=== PATIENT | male | born 1935 | race Caucasian/White ===

== ENCOUNTER 2018-10-23 21:26 | Inpatient (IN) ==
--- NOTE | 2018-10-23 22:21 | Diag Imaging Result Doc PS360 ---
EXAM: CHEST-2 VIEWS HISTORY: CONGESTION, FEVER TECHNIQUE: Chest two views COMPARISON: 05/23/2011 FINDINGS: The left hemidiaphragm is elevated. There is a small left pleural effusion. No cardiomegaly. There are infiltrates in the right upper lobe. No right pleural effusion. There are multiple old right rib fractures. IMPRESSION: Right upper lobe infiltrates. Electronically signed by Jose G Bustamante 10/23/2018 10:19 PM
--- NOTE | 2018-10-23 22:42 | PROVIDER DOCUMENTATION ---
HPI-Respiratory General - General Chief Complaint: Cold Symptoms Stated Complaint: WEAKNESS Time Seen by Provider: 10/23/18 22:35 Source: patient, family Allergies/Adverse Reactions: Patient Allergies Allergy/AdvReac Type Severity Reaction Status Date / Time No Known Allergies Allergy Verified 10/24/18 03:56 Home Medications: Home Medication List Medication Instructions Recorded Confirmed Last Taken Type Donepezil [Aricept] 10 mg PO QHS 10/24/18 10/24/18 Unknown History Doxazosin Mesylate 0.5 mg PO QHS 10/24/18 10/24/18 Unknown History - History of Present Illness-Resp Nature of Presenting Problem: 83 YOM WAS BROUGHT IN BY FAMILY AFTER 3 DAYS OF LUNG CONGESTION. THE FAMILY REPORTS THEY GAVE HIM SOME LEFT OVER PO ABX NAD HE DID NOT IMPROVE TODAY HE WOULD NOT EAT, WAS LESS AWAKE THAN USUAL AND HAD INCREASED O2 REQUIREMENTS. Quality of Pain: reports: none Severity in ED: reports: mild Onset/Duration: reports: 3 days ago Timing: reports: still present Cough Quality/Degree: reports: dry cough Episode Frequency: no prior episodes Current Respiratory Medication Therapy: Initiated other (OXYGEN) Modifying Factors: improves with: nothing Associated Symptoms: reports: denies symptoms Similar Symptoms Previously?: No Recently seen or treated by another doctor?: No Review of Systems - Adult - REVIEW OF SYSTEMS - ADULT Constitutional: reports: fever. denies: no symptoms reported, see HPI, chills, fatique, night sweats, weight gain, weight loss, other Eyes: reports: no symptoms reported. denies: see HPI, discharge, dry eyes, decreased vision, blurred vision, double vision, eye pain, redness, other Ears, Nose, Mouth & Throat: reports: sinus problem. denies: no symptoms reported, see HPI, ear discharge, ear pain, hearing loss, tinnitus, epistaxis, nose pain, loose teeth, mouth/dental pain, mouth swelling, hoarseness, throat pain, throat swelling, other Cardiovascular: reports: no symptoms reported. denies: see HPI, chest pain, edema, heart murmur, irregular heart rate, orthopnea, palpitations, poor circulation, PND, syncope, other Respiratory: reports: cough, shortness of breath. denies: no symptoms reported, see HPI, chronic cough, dyspnea on exertion, excessive sputum production, hemoptysis, pleurisy, wheezing, other Gastrointestinal: reports: no symptoms reported. denies: see HPI, abdominal pain, hematemesis, constipation, diarrhea, difficulty swallowing, frequent heartburn, nausea, poor appetite, rectal bleeding, vomiting, other Genitourinary: reports: no symptoms reported. denies: see HPI, dysuria, discharge, frequency, flank pain, frequent UTI's, hematuria, hesitency, incontinence, urinary retention, urgency, other Musculoskeletal: reports: no symptoms reported. denies: see HPI, bone pain, back pain, frequent leg cramps, joint pain, joint swelling, muscle aches, muscle weakness, neck pain, other Integumentary: reports: no symptoms reported. denies: see HPI, hives, hair loss, itching, mole changes, nail changes, rash, skin sores/ulcer, skin thickening, other Neurological: reports: no symptoms reported. denies: see HPI, ataxia, dizziness/vertigo, headache/migraines, loss of balance, numbness, paresthesia, seizure, slurred speech, syncope, tremors, other Psychiatric: reports: no symptoms reported. denies: see HPI, anxiety, anti-depressant use, alcohol/drug dependence, depression, emotional problems, insomnia, panic attacks, suicidal thoughts, other Endocrine: reports: no symptoms reported. denies: see HPI, change in skin pigment, excessive sweating, goiter, cold intolerance, heat intolerance, increased hunger, increased thirst, polyuria, other Hematologic/Lymphatic: reports: no symptoms reported. denies: see HPI, blood clots, easy bruising, low blood count, lymphedema, prolonged bleeding, swollen lymph nodes, transfusions, other Allergic/Immunologic: reports: no symptoms reported. denies: see HPI, allergic reactions, allergic rhinitis, asthma, eczema, food allergy, frequent infections, hay fever, hives, positive PPD, urticaria, other Past History - Adult - PAST MEDICAL HISTORY-ADULT Review of Records: reports: Nursing Assessment Review, Social history reviewed & non-contributory. Physical Exam-General - PHYSICAL EXAM-ADULT Initial Vital Signs Reviewed: Yes - CONSTITUTIONAL General Appearance: no apparent distress, thin, slow to respond - EYES Eyes: PERRL/EOMI - HEAD, EARS, NOSE, MOUTH & THROAT HENMT: normocephalic/atraumatic, moist mucous membranes, normal ENT inspection - NECK Neck: non-tender, full range of motion - RESPIRATORY Respiratory: no pleuratic chest pain, no respiratory distress, no accessory muscle use, crackles, wheezing. negative: lungs clear - CARDIOVASCULAR Cardiovascular: normal peripheral pulses, no edema, no gallop, no JVD, no murmur - GASTROINTESTINAL (ABDOMEN) Abdominal Exam: normal bowel sounds, non tender, soft - LYMPHATIC Lymphatic: no adenopathy - MUSCULOSKELETAL Back Exam: normal inspection, no CVA tenderness, no vertebral tenderness Extremity: normal range of motion, non-tender, normal gait - SKIN Integumentary: normal color, normal turgor - NEUROLOGIC Neurologic: grossly normal - PSYCHIATRIC Psych/Mental Status: normal mood/affect, oriented x 3 Progress - PLAN OF CARE/RESULTS Progress/Plan/Lab Results: Orders Category Date Time Status Admit - [facility] Routine AdmDCTranf 10/24/18 00:02 Active cxr [CHEST-2 VIEWS] [RAD] Stat Exams 10/23/18 21:45 Completed BLOOD CULTURE [BLDCUL] Stat Lab 10/23/18 23:17 Results CBC WITH ELECTRONIC DIFF [HEME] Stat Lab 10/23/18 23:17 Completed COMPREHENSIVE METABOLIC PANEL [CHEM] Stat Lab 10/23/18 23:17 Completed Flu [INFLUENZA SCREEN PL] Stat Lab 10/24/18 00:09 Completed LACTATE, PLASMA [CHEM] Stat Lab 10/23/18 23:17 Completed PROTIME WITH INR [COAG] Stat Lab 10/23/18 23:17 Completed PTT [COAG] Stat Lab 10/23/18 23:17 Completed 0.9% Sodium Chloride Inj [Ns] 1,000 ml Med 10/24/18 00:05 Discontinued IV 75 mls/hr 0.9% Sodium Chloride Inj [Ns] 1,000 ml Med 10/24/18 00:01 Discontinued IV 999 mls/hr Albuterol 2.5MG/Ipratrop 0.5MG [Duoneb (A & A)] Med 10/24/18 07:30 Active 3 ml INH [id number] Levofloxacin 500 mg/D5w [Levaquin 500 mg/D5w] Med 10/23/18 22:49 Discontinued 500 mg in 100 ml IV NOW Levofloxacin 500 mg/D5w [Levaquin 500 mg/D5w] Med 10/24/18 21:00 Discontinued 500 mg in 100 ml IV ONCE Aerosol Treatments Routine Oth 10/24/18 00:05 Completed Aerosol Treatments Stat Oth 10/24/18 00:05 Completed Oxygen Device Stat Oth 10/23/18 22:37 Completed EKG [EKG] Stat Ther 10/23/18 22:42 Ordered Transfer/Admit Order [TRANSFER] Routine Transfer 10/24/18 00:05 Completed Result Diagrams: 10/26/18 06:45 10/26/18 06:45 - XRAY 1 XRAY Study: Chest Impression: Abnormal (FINDINGS: The left hemidiaphragm is elevated. There is a small left pleural effusion. No cardiomegaly. There are infiltrates in the right upper lobe. No right pleural effusion. There are multiple old right rib fractures. IMPRESSION: Right upper lobe infiltrates.) Departure - Departure Date of Disposition Decision: 10/23/18 Time of Disposition Decision: 23:30 DIAGNOSIS: Dementia, Pneumonia Disposition: ADMITTED INPATIENT 09 Certified Medical Emergency: Emergent Condition: Stable - Critical Care Note This patient required my direct & personal management of CC.: No Attestation - Physician/ MARY BETH Attestation Patient care was provided by Advanced Practice Provider:: Yes Advanced Practice Provider:: Ana Maria Medel Advanced Practice Provider documentation review:: The Mid-level provider documentation, treatment plan and medical decision making was reviewed by the physician who agrees with all treatment and medical decision making by the P. The physician spent face to face time with patient:: No Advanced Practice Provider documentation review:: Supervising physician onsite and consulted in the evaluation and care of this patient. The physician did not have a face to face encounter with the patient.
[2018-10-23] MEDS ORDERED: LEVAQUIN 500 MG/D5W 500 MG/100 ML IVPB IV ONE (22:49)
[2018-10-23 23:40] LABS: BASO# 0.03 X1000 (0.0-0.2); BASO% 0.2 % (0.0-0.8); EOS# 0.02 X1000 (0.0-0.7); EOS% 0.1 % (0.0-10.0); HEMATOCRIT 45.2 % (42.0-52.0); HEMOGLOBIN 14.3 g/dL (14.0-18.0); IMM GRAN# 0.04 X1000 (0.0-0.04); IMM GRAN% 0.3 % (0.0-0.5); LYMPH# 1.22 X1000 (1.2-3.4); LYMPH% 8.6 % (20.5-51.1); MCH 30.4 PG (27-31); MCHC 31.6 g/dL (33-37); MCV 96.2 FL (81-99); MONO# 2.36 X1000 (0.11-0.59); MONO% 16.7 % (1.7-9.3); MPV 9.7 FL (7.4-10.4); NEUT# 10.46 X1000 (1.4-6.5); NEUT% 74.1 % (42.2-75.2); PLT 270 X1000 (130-400); RDW 13.9 % (11.5-14.5); WBC 14.13 X1000 (4.8-10.8)
[2018-10-23 23:50] LABS: INR 1.17; PROTIME 15.5 Seconds (11.0-16.0)
[2018-10-23 23:56] LABS: ALBUMIN 4.3 g/dL (3.5-5.0); CALCIUM 9.4 mg/dL (8.8-10.2); CREATININE 1.4 mg/dL (0.7-1.2); POTASSIUM 4.7 mmol/L (3.5-5.1); TOTAL BILIRUBIN 0.9 mg/dL (0.20-1.00)
[2018-10-24] MEDS ORDERED: NS 1,000 ML IV ONE ×2 (00:01→00:05)
[2018-10-24 00:37] LABS: INFLUENZA A NEGATIVE (NEGATIVE); INFLUENZA B NEGATIVE (NEGATIVE)
[2018-10-24] MEDS: DUONEB (A & A) INH SCH ×6 (08:17→23:40)
--- NOTE | 2018-10-24 17:33 | HISTORY AND PHYSICAL ---
PRIMARY CARE PHYSICIAN: Dr. Samia Hyatt. CHIEF COMPLAINT: Increased congestion over the past 3 days that had worsened and a decreased appetite. HISTORY OF PRESENTING ILLNESS: This is an 83-year-old male who presents to [facility] ER with family who states that he had congestion in his lungs for the past 3 days. The family gave him some leftover p.o. antibiotics but he did not improve, his appetite was decreased, seemed less awake than usual and had increased O2 requirements. When he arrived to the emergency room he was saturating 96% on room air. He did have a temperature of 99.9 degrees that went up a few hours later to 100.9 but this morning is now back down to 98.7. His white blood cell count was 14.13, his creatinine was 1.4, sodium 146. Plasma lactate was 2.8. Chest x-ray showed right upper lobe infiltrates so he is being admitted for further evaluation and treatment. PAST MEDICAL HISTORY: Dementia. PAST SURGICAL HISTORY: Of a carpal tunnel and hernia repair. FAMILY HISTORY: Reviewed and noncontributory. SOCIAL HISTORY: Currently lives with family. Denies any tobacco, alcohol or illicit drug use. ALLERGIES: He has no known drug allergies. HOME MEDICATIONS: He takes Aricept 10 mg p.o. at bedtime, doxazosin 0.5 mg p.o. at bedtime. LABORATORY DATA: Showed a white blood cell count of 14.13, hemoglobin 14.3, hematocrit 45.2, platelets 270,000, PT and INR of 15.5 and 1.17. Sodium 146, potassium 4.7, chloride 102, CO2 29, BUN of 24, creatinine 1.4, glucose 142. Plasma lactate on arrival was 2.8, 4 hours later went down to 1.6 and this a.m. was 1.1. Influenza A and B were both negative. Chest x-ray showed a right upper lobe infiltrates. REVIEW OF SYSTEMS: Unable to obtain from patient due to lethargy but family at bedside states that he has had increased congestion, some shortness of breath and decreased appetite. PHYSICAL EXAMINATION: On arrival he had a temperature of 99.9 degrees, pulse 106, respirations 18, blood pressure 114/62, saturating 96% on room air. Temperature did go up a couple hours after arrival to 100.9 but currently is back down to 98.7. He is saturating 97% on 2 L via nasal cannula. GENERAL: This is an 83-year-old male who is lying in the bed and answers questions appropriately. HEENT: Normocephalic, atraumatic. Normal ENT inspection. Oropharynx and nares are clear. Pupils are equal, round, reactive to light, accommodation. Extraocular movements are intact. NECK: Normal inspection. Normal range of motion. LUNGS: With wheezing throughout entire posterior lung chambers. Equal lung expansion. Chest wall movement noted. O2 via nasal cannula currently in use. HEART: Regular rate and rhythm. No murmurs, rubs, or gallops. ABDOMEN: Soft, nontender, nondistended. Bowel sounds are present x4 quadrants. MUSCULOSKELETAL: Unable to assess at this time due to his lethargy but family states he moves all extremities well. NEUROLOGICAL: The cranial nerves 2-12 appear grossly intact. ASSESSMENT: 1. Sepsis. 2. A right upper lobe pneumonia. 3. Leukocytosis. 4. Acute kidney injury. PLAN: He was admitted to the medical unit. Placed on a healthy heart diet. Placed on Levaquin 500 mg IV daily, normal saline at 75 mL an hour, DuoNeb q.4 hours. Will recheck a CBC, BMP in the a.m. Continue home medications as previously identified. Further orders after being seen by attending. Dictated by DELANEY Enriquez for Karthik Dodge MD cc: DO Karthik Lundberg MD
[2018-10-24] MEDS ORDERED: LEVAQUIN 500 MG/D5W 500 MG/100 ML IVPB IV ONE (21:00)
[2018-10-24] MEDS: TYLENOL PO PRN (21:59)
[2018-10-24] MEDS: ARICEPT PO SCH (21:59)
[2018-10-24] MEDS: CARDURA PO SCH (21:59)
[2018-10-24] MEDS: LEVAQUIN 500 MG/D5W 500 MG/100 ML IVPB IV SCH (22:09)
--- NOTE | 2018-10-25 05:31 | PROGRESS NOTE ---
CHIEF COMPLAINT: Shortness of breath. Briefly, this is an 83-year-old male with dementia who presents with chest congestion, fever, a white count of 14,000, and evidence of pneumonia. On physical exam he seems somewhat sedated. We will continue antibiotics and breathing treatments. No wheezing at this point. DVT prophylaxis and follow. This is a [id number] encounter note with DELANEY Enriquez. cc: Karthik Dodge MD
[2018-10-25] MEDS: LOVENOX SUBQ SCH (05:51)
[2018-10-25] MEDS: TYLENOL PO PRN ×2 (05:58→19:58)
[2018-10-25 07:47] LABS: BASO# 0.02 X1000 (0.0-0.2); BASO% 0.3 % (0.0-0.8); EOS# 0.03 X1000 (0.0-0.7); EOS% 0.4 % (0.0-10.0); HEMATOCRIT 37.7 % (42.0-52.0); HEMOGLOBIN 11.9 g/dL (14.0-18.0); IMM GRAN# 0.01 X1000 (0.0-0.04); IMM GRAN% 0.1 % (0.0-0.5); LYMPH% 8.1 % (20.5-51.1); MCH 30.4 PG (27-31); MCHC 31.6 g/dL (33-37); MCV 96.2 FL (81-99); MONO# 1.16 X1000 (0.11-0.59); MONO% 15.7 % (1.7-9.3); MPV 9.4 FL (7.4-10.4); NEUT# 5.58 X1000 (1.4-6.5); NEUT% 75.4 % (42.2-75.2); PLT 228 X1000 (130-400); RBC 3.92 XMIL (4.7-6.1); RDW 13.5 % (11.5-14.5)
[2018-10-25 07:49] LABS: AGAP 12; BUN 20 mg/dL (8-22); CALCIUM 8.3 mg/dL (8.8-10.2); CHLORIDE 105 mmol/L (98-107); COSMO 293; CREATININE 1.1 mg/dL (0.7-1.2); ESTIMATED GFR > 60; GLUCOSE 158 mg/dL (70-104); POTASSIUM 4.1 mmol/L (3.5-5.1); SODIUM 144 mmol/L (136-145); TCO2 26 mmol/L (25-35)
[2018-10-25] MEDS: DUONEB (A & A) INH SCH ×4 (08:14→20:30)
[2018-10-25] MEDS: LEVAQUIN 500 MG/D5W 500 MG/100 ML IVPB IV SCH (09:45)
--- NOTE | 2018-10-25 15:56 | PROGRESS NOTE ---
DATE: 10/25/2018 SUBJECTIVE: He is more awake and alert today. Still a little bit confused. OBJECTIVE: Vital Signs: Blood pressure is 105/66, heart rate of 104, respiratory rate of 20, temperature 99.3 degrees. He had a T-max of a 102.8 degrees. Cardiovascular: Regular rate and rhythm. Pulmonary: Bilateral breath sounds. Diminished at the bases. GI: Soft, nontender, nondistended. Bowel sounds are positive. LABORATORY DATA: White count is 7. Hemoglobin and hematocrit 11 and 37, platelets 228,000. Basic was normal. Flu was negative. Repeat lactate was negative. PROBLEM LIST: 1. Pneumonia which I think was right upper lobe and certainly possible it is aspiration type pneumonia. Right now he is just on Levaquin. We will continue Levaquin, pulmonary toilet, and follow. If persistently febrile, we may have to pursue CT imaging, and we will continue with pulmonary toilet and follow closely. 2. Dementia. Appears to be well controlled. DISPOSITION: Anticipate discharge when afebrile. I think he is not significantly active at baseline, but we will see how he looks. cc: Karthik Dodge MD
[2018-10-25 17:28] LABS: INFLUENZA A NEGATIVE (NEGATIVE); INFLUENZA B NEGATIVE (NEGATIVE)
[2018-10-25] MEDS: CARDURA PO SCH (19:58)
[2018-10-25] MEDS: ARICEPT PO SCH (19:58)
[2018-10-26] MEDS: ARICEPT PO SCH ×2 (01:44→21:15)
[2018-10-26] MEDS: CARDURA PO SCH ×2 (01:44→21:15)
[2018-10-26] MEDS: DUONEB (A & A) INH SCH ×6 (02:42→22:37)
[2018-10-26] MEDS: LOVENOX SUBQ SCH (05:17)
[2018-10-26 07:18] LABS: BASO# 0.01 X1000 (0.0-0.2); BASO% 0.2 % (0.0-0.8); EOS# 0.09 X1000 (0.0-0.7); EOS% 1.5 % (0.0-10.0); HEMATOCRIT 35.4 % (42.0-52.0); HEMOGLOBIN 11.5 g/dL (14.0-18.0); IMM GRAN# 0.01 X1000 (0.0-0.04); IMM GRAN% 0.2 % (0.0-0.5); LYMPH# 0.49 X1000 (1.2-3.4); LYMPH% 8.1 % (20.5-51.1); MCH 30.4 PG (27-31); MCHC 32.5 g/dL (33-37); MCV 93.7 FL (81-99); MONO# 0.89 X1000 (0.11-0.59); MONO% 14.8 % (1.7-9.3); MPV 9.1 FL (7.4-10.4); NEUT# 4.54 X1000 (1.4-6.5); NEUT% 75.2 % (42.2-75.2); PLT 207 X1000 (130-400); RBC 3.78 XMIL (4.7-6.1); RDW 13.1 % (11.5-14.5); WBC 6.03 X1000 (4.8-10.8)
[2018-10-26 07:42] LABS: AGAP 8; BUN 13 mg/dL (8-22); CHLORIDE 104 mmol/L (98-107); COSMO 279; ESTIMATED GFR > 60; GLUCOSE 115 mg/dL (70-104); POTASSIUM 3.4 mmol/L (3.5-5.1); SODIUM 139 mmol/L (136-145); TCO2 28 mmol/L (25-35)
--- NOTE | 2018-10-26 07:55 | Diag Imaging Result Doc PS360 ---
EXAM: CHEST-PORTABLE HISTORY: pna TECHNIQUE: Portable chest single view COMPARISON: 10/23/2018 FINDINGS: There are now infiltrates throughout both lungs. Poor inspiratory effort. No cardiomegaly. The left hemidiaphragm is elevated. Small left pleural effusion versus pleural thickening. IMPRESSION: Interval worsening. Electronically signed by Jose G Bustamante 10/26/2018 7:53 AM
[2018-10-26] MEDS: LEVAQUIN 500 MG/D5W 500 MG/100 ML IVPB IV SCH (08:21)
--- NOTE | 2018-10-26 10:57 | PROGRESS NOTE ---
DATE: 10/26/2018 SUBJECTIVE: Family notes that he seems to be doing a little bit better. He is still having some cough and shortness of breath, still confused and disoriented at times. PHYSICAL EXAMINATION: Vital Signs: Temperature 97, pulse 95, respiratory rate 18, blood pressure 104/54. General: Patient is awake, currently in no distress. He does respond to verbal stimuli, although is unable to answer questions appropriately due to his dementia. HEENT: Normocephalic. Neck: Supple. Cardiovascular: Regular rate. Chest: Clear. Abdomen: Soft. Extremities: Moves all extremities. ASSESSMENT: 1. Pneumonia. His recent chest x-ray was worse. Given his dementia and his propensity to not take medications as prescribed, we will keep him in the hospital today. We will attempt to telephone exchange operator to p.o. antibiotics. We will add clindamycin as he certainly could be aspirating. If he is unable to keep this down or unwilling to keep it down, then we will switch over to IV antibiotics. 2. Dementia. cc: Musa Santos MD
[2018-10-26] MEDS: CLEOCIN PO SCH ×2 (12:31→16:44)
[2018-10-27] MEDS: LOVENOX SUBQ SCH (05:17)
[2018-10-27] MEDS: DUONEB (A & A) INH SCH ×4 (07:34→19:00)
[2018-10-27] MEDS: CLEOCIN PO SCH ×3 (08:58→16:20)
[2018-10-27] MEDS: LEVAQUIN 500 MG/D5W 500 MG/100 ML IVPB IV SCH (08:58)
[2018-10-27 14:19] VITALS: BP 110/79
--- NOTE | 2018-10-28 00:31 | DISCHARGE SUMMARY ---
ADMISSION DATE: 10/24/2018 DISCHARGE DATE: 10/27/2018 DISCHARGE DIAGNOSES: 1. Pneumonia right upper lobe. 2. Dementia. CONSULTATIONS: None. PROCEDURES: None. BRIEF HOSPITAL COURSE: The patient is an 83-year-old male who presented to the hospital with increased cough, congestion and increased work of breathing. He was subsequently diagnosed with pneumonia and was placed on antibiotics. He thankfully had an uneventful hospital course, he continued to improve. On discharge he is awake and alert. He is confused but this is his baseline. He has had no further changes. He is taking antibiotics orally and therefore will be discharged home. DISPOSITION: The patient will be discharged home on azithromycin and Omnicef for the next 4 days. He will follow up with his primary care if symptoms worsen. Discussed with the family that if as he has done in the past he begins to refuse his antibiotics they will need to bring him back to the ER and he would need to stay in the hospital for IV antibiotics, but certainly expect that his confusion and agitation may improve when he is back in his regular environment. TIME SPENT: Greater than 30 minutes was spent in total care. cc: Musa Santos MD
[2018-10-28] MEDS ORDERED: LEVAQUIN PO SCH (09:00)
== END 2018-10-27 19:38 | disposition home or self-care (01) | DRG 871 ==
LOC: P.ED 21:26 → SUATTDRO 10-24 01:11 → P.MEDSURG 10-24 01:11
PROVIDERS: ATTEND Family Medicine
CPT/HCPCS: 71010; 71020; 71045; 71046; 80048; 80053; 83605; 85025; 85610; 85730; 87040; 87275; 87276; 87804; 93005; 94640; 94761; 96365; 99285; A9270; J1650; J1956; J7030

== ENCOUNTER 2019-08-01 17:14 | Inpatient (IN) ==
[2019-08-01] MEDS ORDERED: ROCEPHIN 1 GM in NS 50 ML IV ONE ×2 (18:05→19:25)
[2019-08-01] MEDS ORDERED: NS 1,000 ML IV ONE ×2 (18:05)
--- NOTE | 2019-08-01 18:38 | PROVIDER DOCUMENTATION ---
This chart was entered by Ondina Sanchez Scribe, acting as scribe for Messi Mojica MD. HPI-General Adult - General Source: patient - History of Present Illness -Gen Adult Nature of Presenting Problems: Pt is a 83 yom who presents to the ED via daughter. Pt daughter reports dementia in the pt onset 10 years. Pt daugther states that the pt seemed normal last nig ht, but slept in this morning and became lethargic. States that she tried to wake the pt but he would not respond which is unusual for him. Pt daughter states that the pt felt hot but is unsure of fever. Pt daughter reports poor fluid intake in the patient. Denies any N/V/D. Reports COPD. Onset/Duration: reports: this morning Timing: reports: still present Context/Activities at Onset: reports: none Modifying Factors: improves with: nothing Associated Symptoms: reports: fatigue, fever/chills Similar Symptoms Previously?: No Recently seen or treated by another doctor?: No <Messi Mojica - Last Filed: 08/01/19 18:37> - History of Present Illness -Gen Adult Nature of Presenting Problems: Patient is a 83 year old white male with history of COPD and severe dementia who arrives by POV with altered mentation,poor intake, and possible fever since yesterday. <Manuel Rondon - Last Filed: 08/01/19 21:56> - General Chief Complaint: Altered Mental Status Stated Complaint: FEVER LATHARGIC Time Seen by Provider: 08/01/19 17:16 Allergies/Adverse Reactions: Patient Allergies Allergy/AdvReac Type Severity Reaction Status Date / Time No Known Allergies Allergy Verified 10/24/18 03:56 Home Medications: Home Medication List Medication Instructions Recorded Confirmed Last Taken Type Donepezil [Aricept] 10 mg PO QHS 10/24/18 10/24/18 Unknown History Doxazosin Mesylate 0.5 mg PO QHS 10/24/18 10/24/18 Unknown History Clindamycin [Cleocin] 300 mg PO TID #30 cap 10/27/18 Unknown Rx Levofloxacin [Levaquin] 500 mg PO DAILY #4 tab 10/27/18 Unknown Rx Review of Systems - Adult - REVIEW OF SYSTEMS - ADULT ROS:: ROS per family Constitutional: reports: see HPI, fever (Pt daughter states that the pt felt extremely hot, but is unsure of fever.), fatique Eyes: reports: no symptoms reported Ears, Nose, Mouth & Throat: reports: no symptoms reported Cardiovascular: reports: no symptoms reported Respiratory: reports: no symptoms reported Gastrointestinal: reports: see HPI, other (poor fluid intake). denies: diarrhea, nausea, vomiting Genitourinary: reports: no symptoms reported Musculoskeletal: reports: no symptoms reported Integumentary: reports: no symptoms reported Neurological: reports: see HPI, other ( hx of dementia for 10 years) Psychiatric: reports: no symptoms reported Endocrine: reports: no symptoms reported Hematologic/Lymphatic: reports: no symptoms reported Allergic/Immunologic: reports: no symptoms reported All Other Systems: Reviewed and Negative <Messi Mojica - Last Filed: 08/01/19 18:37> - REVIEW OF SYSTEMS - ADULT Respiratory: reports: cough <Manuel Rondon - Last Filed: 08/01/19 21:56> Past History - Adult - PAST MEDICAL HISTORY-ADULT Review of Records: reports: Social history reviewed & non-contributory. Major Childhood Illnesses: reports: denies history Cardiovascular: reports: denies history Respiratory: reports: denies history Gastrointestinal: reports: denies history Obstetrical/Gynecological: reports: denies history Genitourinary: reports: denies history Musculoskeletal: reports: denies history Neurological: reports: dementia Endocrine/Immune: reports: denies history Other Conditions: reports: denies history - SOCIAL HISTORY Smoking: quit greater than 1 year Substance Use: denies Living Situation: family <Messi Mojica - Last Filed: 08/01/19 18:37> Physical Exam-General - PHYSICAL EXAM-ADULT Initial Vital Signs Reviewed: No - CONSTITUTIONAL General Appearance: alert, no apparent distress - EYES Eyes: PERRL/EOMI, pink conjunctivae - HEAD, EARS, NOSE, MOUTH & THROAT HENMT: normocephalic/atraumatic, moist mucous membranes - NECK Neck: non-tender, full range of motion, supple, normal inspection - RESPIRATORY Respiratory: chest non-tender, lungs clear, normal breath sounds, no respiratory distress, no accessory muscle use - CARDIOVASCULAR Cardiovascular: normal peripheral pulses, regular rate, rhythm, no edema, no gallop, no JVD, no murmur - GASTROINTESTINAL (ABDOMEN) Abdominal Exam: normal bowel sounds, soft, tenderness (lower abd tenderness) - MUSCULOSKELETAL Extremity: normal range of motion, non-tender, normal inspection, no pedal edema , no calf tenderness - SKIN Integumentary: normal color, normal turgor, warm/dry - NEUROLOGIC Neurologic: other (dementia) - PSYCHIATRIC Psych/Mental Status: normal mood/affect <Messi Mojica - Last Filed: 08/01/19 18:37> Progress - PLAN OF CARE/RESULTS Progress/Plan/Lab Results: Vital Signs - 8 hr 08/01/19 17:31 Temperature 97.8 F Pulse Rate 122 H Respiratory Rate 17 Blood Pressure 101/56 O2 Sat by Pulse Oximetry 89 L Orders Category Date Time Status Cardiac Monitoring NOW Care 08/01/19 17:40 Active IV Insertion NOW Care 08/01/19 17:40 Active NEWS Score >or=5:Order NEWS Bundle S.O. NOW Care 08/01/19 17:40 Active Notify Provider of NEWS Score NOW Care 08/01/19 17:40 Active CHEST-1 VIEW [RAD] Stat Exams 08/01/19 17:40 Ordered BLOOD CULTURE [BLDCUL] Stat Lab 08/01/19 17:40 Uncollected CBC WITH DIFF [HEME] Stat Lab 08/01/19 17:40 Uncollected CK PROFILE [SP CHEM] Stat Lab 08/01/19 17:40 Uncollected COMPREHENSIVE METABOLIC PANEL [CHEM] Stat Lab 08/01/19 17:40 Uncollected LACTATE, PLASMA [CHEM] Q3H Lab 08/01/19 17:45 Uncollected LACTATE, PLASMA [CHEM] Q3H Lab 08/01/19 20:45 Uncollected LACTATE, PLASMA [CHEM] Q3H Lab 08/01/19 23:45 Uncollected PROTIME WITH INR [COAG] Stat Lab 08/01/19 17:40 Uncollected PTT [COAG] Stat Lab 08/01/19 17:40 Uncollected TROPONIN T HIGH SENSITIVITY Stat Lab 08/01/19 17:40 Uncollected URINALYSIS W/POSS RFLX CULT [URINALYSIS] Stat Lab 08/01/19 17:40 Uncollected O2 Per Protocol Stat Oth 08/01/19 17:40 Active - CHANGE OF SHIFT REPORT (ED Provider) 1 Report Given and Care Transferred to:: DR Jammie RONDON Time of Transfer: 18:38 <Mojica,Messi W. - Last Filed: 08/01/19 18:37> - PLAN OF CARE/RESULTS Progress/Plan/Lab Results: Vital Signs - 8 hr 08/01/19 17:31 Temperature 97.8 F Pulse Rate 122 H Respiratory Rate 17 Blood Pressure 101/56 O2 Sat by Pulse Oximetry 89 L Orders Category Date Time Status Cardiac Monitoring NOW Care 08/01/19 17:40 Active FSBS/Accucheck Result NOW Care 08/01/19 18:40 Ordered IV Insertion NOW Care 08/01/19 17:40 Completed NEWS Score >or=5:Order NEWS Bundle S.O. NOW Care 08/01/19 17:40 Active Notify Provider of NEWS Score NOW Care 08/01/19 17:40 Active CHEST-1 VIEW [RAD] Stat Exams 08/01/19 17:[address] ABDOMEN/PELVIS W/O CONTRAST [CT] Stat Exams 08/01/19 18:[address] HEAD W/O CONTRAST [CT] Stat Exams 08/01/19 18:33 Ordered ABG [RESP] Routine Lab 08/01/19 18:34 Ordered BLOOD CULTURE [BLDCUL] Stat Lab 08/01/19 18:37 Ordered CBC WITH DIFF [HEME] Stat Lab 08/01/19 18:37 Ordered CK PROFILE [SP CHEM] Stat Lab 08/01/19 18:37 Ordered COMPREHENSIVE METABOLIC PANEL [CHEM] Stat Lab 08/01/19 18:37 Ordered LACTATE, PLASMA [CHEM] Q3H Lab 08/01/19 18:37 Ordered LACTATE, PLASMA [CHEM] Q3H Lab 08/01/19 20:45 Uncollected LACTATE, PLASMA [CHEM] Q3H Lab 08/01/19 23:45 Uncollected PROTIME WITH INR [COAG] Stat Lab 08/01/19 18:37 Ordered PTT [COAG] Stat Lab 08/01/19 18:37 Ordered TROPONIN T HIGH SENSITIVITY Stat Lab 08/01/19 17:40 Uncollected URINALYSIS W/POSS RFLX CULT [URINALYSIS] Stat Lab 08/01/19 17:40 Uncollected 0.9% Sodium Chloride Inj [Ns] 1,000 ml Med 08/01/19 18:05 Active IV 999 mls/hr 0.9% Sodium Chloride Inj [Ns] 1,000 ml Med 08/01/19 18:05 Active IV 999 mls/hr CefTRIAXONE [Rocephin] 1 gm Med 08/01/19 18:05 Discontinued 0.9% Sodium Chloride Inj [Ns] 50 ml IV NOW O2 Per Protocol Stat Oth 08/01/19 17:40 Active Result Diagrams: 08/01/19 18:30 08/01/19 18:30 - EKG 1 Time of EKG reading by physician:: 19:48 EKG Read and Signed by:: Manuel Rondon Rate: 109 Rhythm: sinus tach [place]: normal ST Wave: non-specific ST changes Comments: no STEMI - CONSULTS/PCP/HOSPITALIST Notification #1 *Consult/PCP/Hospitalist*: Dr. Bean, hospitalist Time Discussed: 19:50 Consult Disposition: Admit <Manuel Rondon - Last Filed: 08/01/19 21:56> Departure <Messi Mojica - Last Filed: 08/01/19 18:37> - Departure Date of Disposition Decision: 08/01/19 Time of Disposition Decision: 19:28 Certified Medical Emergency: Emergent - Critical Care Note This patient required my direct & personal management of CC.: No <Manuel Rondon - Last Filed: 08/01/19 21:56> - Departure DIAGNOSIS: Pneumonia Qualifiers: Pneumonia type: due to unspecified organism Laterality: right Lung location: upper lobe of lung Qualified Code(s): J18.1 - Lobar pneumonia, unspecified organism Dementia Qualifiers: Dementia type: unspecified type Dementia behavioral disturbance: without behavioral disturbance Qualified Code(s): F03.90 - Unspecified dementia without behavioral disturbance Altered mental state Qualifiers: Altered mental status type: unspecified Qualified Code(s): R41.82 - Altered mental status, unspecified Disposition: ADMITTED INPATIENT 09 Condition: Stable Referrals and Follow-Ups: None,PCP [Primary Care Provider] - Attestation - Physician/ MARY BETH Attestation Patient care was provided by Advanced Practice Provider:: No The physician spent face to face time with patient:: Yes Advanced Practice Provider documentation review:: Supervising physician onsite and consulted in the evaluation and care of this patient. The physician did have a face to face encounter with the patient. <Messi Mojica - Last Filed: 08/01/19 18:37> This chart was documented by the indicated scribe, (Ondina Sanchez Scribe) and accurately reflects the services I performed and decisions made by me, Messi Mojica MD, as attested by the provider's signature.
[2019-08-01 18:49] LABS: BASO# 0.02 X1000 (0.0-0.2); BASO% 0.1 % (0.0-0.8); EOS# 0.01 X1000 (0.0-0.7); EOS% 0.1 % (0.0-10.0); HEMATOCRIT 47.1 % (42.0-52.0); HEMOGLOBIN 14.9 g/dL (14.0-18.0); IMM GRAN# 0.04 X1000 (0.0-0.04); IMM GRAN% 0.3 % (0.0-0.5); LYMPH# 0.84 X1000 (1.2-3.4); LYMPH% 5.4 % (20.5-51.1); MCH 29.8 PG (27-31); MCHC 31.6 g/dL (33-37); MCV 94.2 FL (81-99); MONO# 1.86 X1000 (0.11-0.59); MPV 9.3 FL (7.4-10.4); NEUT% 82.1 % (42.2-75.2); PLT 246 X1000 (130-400); RDW 13.6 % (11.5-14.5); WBC 15.47 X1000 (4.8-10.8)
[2019-08-01 18:55] LABS: INR 1.08; PROTIME 14.6 Seconds (11.0-16.0)
[2019-08-01 18:56] LABS: PTT 33.4 Seconds (22.3-41.8)
[2019-08-01 19:00] LABS: BLOOD TYPE ARTERIAL; HCO3-(ACT) 26.2 mmoll (20.0-26.0); METHB 1.2 % (0.0-1.5); O2HB 90.1 % (95.0-99.0); PCO2(98.6) 40 mmHg (35-45); PO2(98.6) 58 mmHg (60-100); SAMPLE BLOOD; SAO2 94.3 % (95.0-100.0); THB 15.8 g/dL (11.5-17.4); pH(98.6) 7.43 (7.35-7.45)
[2019-08-01 19:04] LABS: ALLEN TEST NO; MODALITY ROOM AIR
[2019-08-01 19:04] LABS: ALBUMIN 4.2 g/dL (3.5-5.0); CALCIUM 9.1 mg/dL (8.8-10.2); CREATININE 1.5 mg/dL (0.7-1.2); TOTAL BILIRUBIN 0.7 mg/dL (0.20-1.00); TOTAL PROTEIN 7.9 g/dL (6.3-8.3)
--- NOTE | 2019-08-01 19:20 | Diag Imaging Result Doc PS360 ---
EXAM: CT HEAD W/O CONTRAST - 08/01/2019 HISTORY: AMS TECHNIQUE: CT head without contrast COMPARISON: None. FINDINGS: There are mild atrophic changes with mild ventriculomegaly. There is no evidence of intracranial hemorrhage, mass effect, or midline shift. There are minimal chronic appearing microvascular ischemic changes. There is no evidence of infarct, although acute infarcts may not be immediately visible. There is no evidence of skull fracture. The paranasal sinuses and mastoid air cells appear clear. IMPRESSION: No visible acute intracranial abnormality. No hemorrhage or mass effect. This exam was performed using automated exposure control, adjustment of mA or kV according to patient size, and/or use of iterative reconstruction technique. Electronically signed by Rayray Charles 08/01/2019 7:17 PM
[2019-08-01] MEDS ORDERED: ZITHROMAX 500 MG/NS 500 MG/250 ML IVPB IV ONE (19:25)
--- NOTE | 2019-08-01 19:28 | Diag Imaging Result Doc PS360 ---
EXAM: CT ABDOMEN/PELVIS W/O CONTRAST - 08/01/2019 HISTORY: septic,low abd tender TECHNIQUE: CT abdomen/pelvis without contrast. No contrast administered per request of the referring provider. COMPARISON: None. FINDINGS: There are tiny right and small left pleural effusions. There are no substantial abnormalities of the liver, spleen, or pancreas identified. There is mild enlargement of the left adrenal gland. There are no calcified gallstones or pericholecystic inflammation identified. There is no renal stone or hydronephrosis identified. There is mild retroperitoneal adenopathy. There are atherosclerotic calcifications noted. There are bilateral L5 pars interarticularis defects noted. There is no evidence of bowel obstruction. The appendix is unremarkable. There is colonic diverticulosis which is most extensive along the descending and sigmoid colon. There is no evidence of diverticulitis. There is a moderate amount retained fecal debris in the rectosigmoid colon. There is no abscess identified. There is no free air or free fluid identified. The prostate is mildly prominent. The urinary bladder palacios are possibly mildly thickened. There is some haziness of pelvic fat in the urinary bladder prostate. IMPRESSION: Mild enlargement of left adrenal gland. Mild retroperitoneal adenopathy. Colonic diverticulosis. No evidence of diverticulitis. Moderate amount retained fecal debris in colon. No bowel obstruction. No abscess. No free air. Possible prostatitis and/or urinary bladder cystitis. This exam was performed using automated exposure control, adjustment of mA or kV according to patient size, and/or use of iterative reconstruction technique. Electronically signed by Rayray Charles 08/01/2019 7:26 PM
--- NOTE | 2019-08-01 19:53 | Diag Imaging Result Doc PS360 ---
EXAM: CHEST-1 VIEW - 08/01/2019 HISTORY: AMS TECHNIQUE: One view chest COMPARISON: 01/26/2019 FINDINGS: Heart size is normal. There is right suprahilar opacity which may represent infiltrate, mass, or scar. The remainder of the lungs appear essentially clear. There is no substantial pleural effusion or pneumothorax identified. IMPRESSION: Right suprahilar infiltrate, mass, or scar. Electronically signed by Rayray Charles 08/01/2019 7:50 PM
[2019-08-01 21:10] LABS: URINE SOURCE CATH
[2019-08-01 21:20] LABS: BILIRUBIN URINE NEGATIVE (NEGATIVE); BLOOD URINE LARGE (NEGATIVE); COLOR YELLOW; GLUCOSE URINE NEGATIVE (NEGATIVE); KETONE URINE TRACE mg/dL (NEGATIVE); LEUKOCYTES URINE LARGE (NEGATIVE); NITRITE URINE NEGATIVE (NEGATIVE); PROTEIN URINE 30 mg/dL (NEGATIVE); SP GRAVITY URINE 1.013; TURBIDITY URINE HAZY (CLEAR); UROBILINOGEN URINE NORMAL (NORMAL)
[2019-08-01 21:21] LABS: UR EPITHELIAL CELLS <10 /HPF (<10); URINE BACTERIA NEGATIVE /HPF; URINE RBC TNTC /HPF (<10); URINE WBC TNTC /HPF (<10)
[2019-08-02] MEDS: DUONEB (A & A) INH SCH ×6 (03:19→22:10)
[2019-08-02 06:51] LABS: BASO# 0.02 X1000 (0.0-0.2); BASO% 0.2 % (0.0-0.8); CALCIUM 7.9 mg/dL (8.8-10.2); CREATININE 1.3 mg/dL (0.7-1.2); EOS# 0.02 X1000 (0.0-0.7); EOS% 0.2 % (0.0-10.0); HEMATOCRIT 38.6 % (42.0-52.0); HEMOGLOBIN 11.9 g/dL (14.0-18.0); IMM GRAN# 0.03 X1000 (0.0-0.04); IMM GRAN% 0.3 % (0.0-0.5); LYMPH# 0.96 X1000 (1.2-3.4); LYMPH% 8.8 % (20.5-51.1); MCH 29.7 PG (27-31); MCHC 30.8 g/dL (33-37); MCV 96.3 FL (81-99); MONO# 1.46 X1000 (0.11-0.59); MONO% 13.3 % (1.7-9.3); MPV 9.6 FL (7.4-10.4); NEUT# 8.45 X1000 (1.4-6.5); NEUT% 77.2 % (42.2-75.2); PLT 198 X1000 (130-400); POTASSIUM 4.1 mmol/L (3.5-5.1); RBC 4.01 XMIL (4.7-6.1); RDW 13.6 % (11.5-14.5); WBC 10.94 X1000 (4.8-10.8)
--- NOTE | 2019-08-02 11:47 | EKG Report ---
Test Performed on : 08/02/2019 11:36:33 AM Test Reason : Afib Blood Pressure : / mmHG Vent. Rate : 100 BPM Atrial Rate : 100 BPM P-R Int : 150 ms QRS Dur : 122 ms QT Int : 396 ms P-R-T Axes : 053 009 092 degrees QTc Int : 510 ms Normal sinus rhythm. Left bundle branch block Abnormal ECG When compared with ECG of 01-AUG-2019 19:47, (Unconfirmed) Left bundle branch block is now present Criteria for Septal infarct are no longer present Confirmed by Tiburcio Kerns MD ([id number]) on 08/03/2019 5:46:32 AM
[2019-08-02] MEDS: NS 1,000 ML IV SCH (12:53)
[2019-08-02] MEDS: PROTONIX IV SCH (12:53)
[2019-08-02] MEDS: SODIUM CHLORIDE 0.9% INJ SCH (12:54)
--- NOTE | 2019-08-02 13:57 | HISTORY AND PHYSICAL ---
CHIEF COMPLAINT: Lethargy, increasing altered mental status. HISTORY OF PRESENT ILLNESS: This is an 83-year-old gentleman with a history of dementia and COPD requiring home O2. He presented to the emergency room with his daughter. She states that he seemed his normal state last night but he slept later in the morning than is normal and when she tried wake him she found he was lethargic. He did not respond, therefore she called 911. She does state that over the last 7 to 10 days he has had decreased oral intake. It started out with a decrease in food and now it has progressed to liquids. She denied any known fevers or chills. Chest x-ray revealed right suprahilar infiltrate. Daughter reports his getting choked frequently while eating solid foods, and coughing after eating over the past months. PMH: Dementia, Atrial Fibrillation - on no medication, COPD, O2 3L NC FAMILY HISTORY; dementia, HTN, "breathing problems" ALLERGIES; nkda HOME MEDICATIONS: A list will be obtained from the nursing staff, we will review and restart as is appropriate. SOCIAL HISTORY; He lives with his daughter and her , no alcohol or illicit drugs per daughter. ROS: Unable to obtain from patient. PHYSICAL EXAM: Temperature 98.3 degrees, pulse 94, respiratory rate 20, blood pressure 126/73, oxygen saturation 96% on 3 L of nasal cannula. HEENT: Head normocephalic, no trauma. Mucous membranes dry. PERRL, sclera anicteric Neck is supple. trachea midline, No JVD. Cardiovascular: RRR freq PACs, S1S2 heard, no murmur appreciated. Chest: breath sounds decreased throughout, with prolonged expiratory phase. Chest rises and falls symmetrically with resp. No increased WOB noted. Abdomen soft, nontender, nondistended. Bowel sounds present in all 4 quadrants.. Extremities: No clubbing, cyanosis or edema. Neurological examination: Lethargic, does not answer verbally. PIERCE at random, withdraws to pain. LABORATORY DATA: WBC 15, hemoglobin 14.9, hematocrit 47.1, platelets 246. Sodium 140, potassium 5, BUN 20, creatinine 1.5, glucose 123, Urinalysis: TNTC WBS & RBC cath speciman. CT head - no acute abnormality, no hemorrhage or mass effect. ASSESSMENT AND PLAN: 1. Right suprahilar infiltrate, likely due to pneumonia. Zyvox and Cefepime, further antibiotics culture driven. 2. H/O Atrial fibrillation - Previously on Amiodarone which was discontinued by the family because "he didnt act right while he was on it". It is unknown when this was stopped. SR at present. Continue telemetry. 3. Dementia, severe, he has been violent in the past. 4. MARIN - most likely due to dehydration. Rehydrate, hold renal toxic medications. renal dose as appropriate. 4. Chronic obstructive pulmonary disease exacerbation on home O2, 3L NC. wheezing bilaterally. 5. Dehydration - rehydrate. Banana bag as he has very little oral intake over the past week. 6. Dysphagia - Swallow evaluation, discussed with Speech therapy. NPO till evaluation completed diet per their recommendation. Disposition: Consult building services coordinator and Palliative care. The daughter reports being recently declined by [facility] as he did not meet criteria. He had HH in the past was unable to participate in PT due to mental status and increasing HR during activity. Pt was examined and plan was reviewed with Dr Bean. Further treatments pending hospital course. Dictated by DELANEY Mccord for Mateo Maria MD Addendum: Patient seen and examined by myself. Agree with DELANEY note. It reflects my assessment and plan. Patient is being admitted to hospital for pneumonia so will be started on broad spectrum IV antibiotics and will continue with most of home medications for his chronic medical conditions. cc: DELANEY Mccord MD [facility]
--- NOTE | 2019-08-02 14:54 | EKG Report ---
Test Performed on : 08/01/2019 7:47:49 PM Test Reason : EKG COMPLETE Blood Pressure : / mmHG Vent. Rate : 109 BPM Atrial Rate : 109 BPM P-R Int : 148 ms QRS Dur : 116 ms QT Int : 376 ms P-R-T Axes : 063 002 075 degrees QTc Int : 506 ms Sinus tachycardia. Septal infarct , age undetermined T wave abnormality, consider lateral ischemia Abnormal ECG When compared with ECG of 23-MAY-2011 21:33, Left bundle branch block is no longer present Septal infarct is now present Unconfirmed Result
[2019-08-02] MEDS: MAXIPIME 1 GM in NS 50 ML IV SCH (17:25)
[2019-08-02] MEDS: ZYVOX 600 MG/D5W 600 MG/300 ML IVPB IV SCH (18:01)
[2019-08-02] MEDS ORDERED: ZITHROMAX 500 MG/NS 500 MG/250 ML IVPB IV SCH (20:00)
[2019-08-02] MEDS ORDERED: ROCEPHIN 2 GM in NS 50 ML IV SCH (20:00)
[2019-08-03] MEDS: NS 1,000 ML IV SCH ×3 (03:07→14:50)
[2019-08-03] MEDS: DUONEB (A & A) INH SCH ×3 (03:22→16:15)
[2019-08-03] MEDS: MAXIPIME 1 GM in NS 50 ML IV SCH ×2 (04:41→18:39)
[2019-08-03] MEDS: ZYVOX 600 MG/D5W 600 MG/300 ML IVPB IV SCH ×2 (05:00→18:39)
[2019-08-03 07:27] LABS: BASO# 0.01 X1000 (0.0-0.2); BASO% 0.2 % (0.0-0.8); EOS# 0.02 X1000 (0.0-0.7); EOS% 0.4 % (0.0-10.0); HEMATOCRIT 36.3 % (42.0-52.0); HEMOGLOBIN 11.1 g/dL (14.0-18.0); IMM GRAN# 0.01 X1000 (0.0-0.04); IMM GRAN% 0.2 % (0.0-0.5); LYMPH# 0.55 X1000 (1.2-3.4); LYMPH% 9.8 % (20.5-51.1); MCH 29.2 PG (27-31); MCHC 30.6 g/dL (33-37); MCV 95.5 FL (81-99); MONO# 0.88 X1000 (0.11-0.59); MONO% 15.7 % (1.7-9.3); MPV 9.2 FL (7.4-10.4); NEUT# 4.12 X1000 (1.4-6.5); NEUT% 73.7 % (42.2-75.2); PLT 194 X1000 (130-400); RDW 13.5 % (11.5-14.5); WBC 5.59 X1000 (4.8-10.8)
[2019-08-03 07:31] LABS: ALBUMIN 2.8 g/dL (3.5-5.0); CALCIUM 7.8 mg/dL (8.8-10.2); CREATININE 1.2 mg/dL (0.7-1.2); POTASSIUM 3.6 mmol/L (3.5-5.1); TOTAL BILIRUBIN 0.4 mg/dL (0.20-1.00); TOTAL PROTEIN 6.2 g/dL (6.3-8.3)
[2019-08-03 07:45] LABS: HEMOGLOBIN A1C 5.3 % (4.8-6.0)
[2019-08-03] MEDS ORDERED: M.V.I.-12 10 ML, FOLIC ACID 1 MG, MAGNESIUM SULFATE 1 GM, THIAMINE 100 MG in NS 1,000 ML IV SCH (09:00)
[2019-08-03] MEDS ORDERED: CARDIZEM IV ONE (09:33)
[2019-08-03] MEDS ORDERED: CARDIZEM 100 MG/NS 100 MG/100 ML IVPB IV SCH (10:43)
[2019-08-03] MEDS ORDERED: M.V.I.-12 10 ML, FOLIC ACID 1 MG, MAGNESIUM SULFATE 1 GM, THIAMINE 100 MG in NS 1,000 ML IV ONE (11:08)
--- NOTE | 2019-08-03 11:08 | EKG Report ---
Test Performed on : 08/03/2019 09:25:59 AM Test Reason : tachy Blood Pressure : / mmHG Vent. Rate : 172 BPM Atrial Rate : 159 BPM P-R Int : 000 ms QRS Dur : 114 ms QT Int : 294 ms P-R-T Axes : 000 097 264 degrees QTc Int : 497 ms Atrial fibrillation. with rapid ventricular response. with premature ventricular or aberrantly conduc andrew complexes. Rightward axis Atrial fibrillation. Incomplete left bundle branch block Marked ST abnormality, possible inferior subendocardial injury Abnormal ECG When compared with ECG of 02-AUG-2019 11:36, Significant changes have occurred Confirmed by Tiburcio Kerns MD ([id number]) on 08/16/2019 8:34:21 PM
[2019-08-03] MEDS: PROTONIX IV SCH (11:49)
[2019-08-03] MEDS: SODIUM CHLORIDE 0.9% INJ SCH (11:49)
[2019-08-03 12:21] LABS: MAGNESIUM 2.2 mg/dL (1.5-2.7); PHOSPHORUS 2.2 mg/dL (2.7-4.5)
--- NOTE | 2019-08-03 16:39 | ECHO REPORT ---
ORDER DATE: 08/03/2019 INTERPRETING PHYSICIAN: Dr. Saulo Hurtado. ECHOCARDIOGRAPHIC MEASUREMENTS: 1. Interventricular septum: 1.0 cm. 2. Left ventricular posterior wall: 0.8 cm. 3. Diastolic diameter: 3.1 cm. 4. Left atrium: 3.3 cm. 5. Aorta: 3.2 cm. SUMMARY OF THE 2-DIMENSIONAL IMAGIN. Aortic valve leaflets are sclerosed, trileaflet. 2. Pulmonic valve was normal. 3. Atrial fibrillation was noted. 4. Mild tricuspid regurgitation. 5. Peak velocity across the tricuspid valve was 2.8 meters per second. 6. Pulmonary artery systolic pressure of 42 mmHg. 7. Peak velocity across the aortic valve less than 2 meters per second. 8. There is no aortic stenosis or regurgitation. 9. There is mild mitral regurgitation. 10. Mild tricuspid regurgitation. 11. Peak velocity across the tricuspid valve less than 2 meters per second. 12. There is no pericardial effusion or obvious intracardiac mass or thrombus seen. 13. Normal left ventricular cavity size. 14. Estimated ejection fraction of 60%. cc: MD Dorothea Rodriguez CRNP
--- NOTE | 2019-08-03 17:03 | EKG Report ---
Test Performed on : 08/03/2019 4:51:38 PM Test Reason : afib Blood Pressure : / mmHG Vent. Rate : 092 BPM Atrial Rate : 092 BPM P-R Int : 148 ms QRS Dur : 124 ms QT Int : 412 ms P-R-T Axes : 039 004 085 degrees QTc Int : 509 ms Normal sinus rhythm. Left bundle branch block Abnormal ECG When compared with ECG of 03-AUG-2019 09:25, (Unconfirmed) Significant changes have occurred Confirmed by Zac Hemphill MD ([id number]) on 08/04/2019 7:22:56 PM
[2019-08-03] MEDS ORDERED: NS NEB INH SCH (17:30)
--- NOTE | 2019-08-03 18:00 | PROGRESS NOTE ---
DATE: 08/03/2019 SUBJECTIVE: This patient is resting comfortably in bed, and actually his vital signs are stable. His heart rate has normalized and he is no longer in atrial fibrillation/RVR. He received a dose of diltiazem and converted back to sinus rhythm. I do not think we need Cardiology Department to evaluate this patient today, but I will keep an eye on him in the ICU. If this happens again, I will reconsult Cardiology. OBJECTIVE: Temperature 97.8 degrees, pulse 88, respiratory rate 18, blood pressure 112/70, oxygen saturation 98% on 3 L of nasal cannula. HEENT: Head normocephalic, no trauma. PERRLA. Neck is supple. No JVD. No masses. Central trachea.Chest: Decreased breath sounds globally, with prolonged expiratory phase and expiratory wheezing. He has right upper lung and midlung rhonchi. Abdomen soft, nontender, nondistended. No hepatosplenomegaly. Extremities: No edema, no clubbing, no cyanosis. Neurological examination: The patient is awake, alert. He is not oriented. He does have a history of dementia. LABORATORY DATA: WBC 5.5, hemoglobin 11.1, hematocrit 36.3, platelets 194,000. Sodium 140, potassium 3.6, chloride 106, bicarbonate 24, BUN 14, creatinine 1.2, glucose 142, calcium 7.8, phosphorus 2.2, albumin 2.8. ASSESSMENT AND PLAN: 1. Right suprahilar infiltrate, likely due to pneumonia. We just had a conversation with the son- in-law by phone. It looks like he has severe dementia, and he has been having fever and shortness of breath at home. X-ray showed a right suprahilar infiltrate. We have started this patient on antibiotics. White blood cell count is trending down from 15 to 10, and today is 5.5, so we will continue with same and monitor. 2. Atrial fibrillation with rapid ventricular response. That episode lasted I think a couple of hours or less than that. He converted back to sinus rhythm after a dose of diltiazem. I will keep this patient in the intensive care unit. I will monitor this closely. I do not think I need to involve Cardiology at this point because he is 83. He has severe dementia. I am not sure he needs to be on anticoagulation, but if he has an episode of atrial fibrillation with rapid ventricular response again, I will reconsult Cardiology. 3. Dementia, seems to be quite severe. Probably is worse at this point since he has this pneumonia. Probably I need to go ahead and do a CT scan of the chest at some point. At this moment he is recovering from an acute kidney injury, but it looks like he may have chronic kidney disease, but not sure. I will monitor for now. 4. History of tobacco use with chronic obstructive pulmonary disease exacerbation. He is wheezing bilaterally. I will put this patient on Xopenex nebulizer and ipratropium to try to help a little bit. Let us see how he does. cc: Roberto Pickard MD
[2019-08-03] MEDS: ATROVENT NEB INH SCH (21:38)
[2019-08-03] MEDS: XOPENEX NEB INH SCH (21:38)
--- NOTE | 2019-08-03 23:24 | PROGRESS NOTE ---
DATE: 08/03/2019 SUBJECTIVE: Patient has dementia. He is still confused. He is on oxygen. OBJECTIVE: Temp 99 degrees, pulse 101, respiratory rate 18, BP 114/54.General: Patient is awake, pleasant, in no current distress. HEENT: Normocephalic. Neck: Supple. Cardiovascular: Currently regular rate. No murmurs. Chest: Decreased but equal. Abdomen: Soft, nondistended. ASSESSMENT: 1. Leukocytosis. 2. Pneumonia. 3. Dementia. 4. Known chronic obstructive pulmonary disease. PLAN: We will continue antibiotics, oxygen, breathing treatments as needed and will follow. cc: Musa Santos MD
[2019-08-04] MEDS: NS 1,000 ML IV SCH ×2 (02:44→17:54)
[2019-08-04] MEDS: ATROVENT NEB INH SCH ×4 (03:30→22:17)
[2019-08-04] MEDS: MAXIPIME 1 GM in NS 50 ML IV SCH ×2 (04:29→17:23)
[2019-08-04] MEDS: ZYVOX 600 MG/D5W 600 MG/300 ML IVPB IV SCH ×2 (05:10→17:53)
[2019-08-04] MEDS ORDERED: D50W SYRINGE IV ONE (05:52)
[2019-08-04 06:01] LABS: NEUT% 63.4 % (42.2-75.2)
[2019-08-04 06:08] LABS: BASO# 0.01 X1000 (0.0-0.2); BASO% 0.2 % (0.0-0.8); EOS# 0.12 X1000 (0.0-0.7); EOS% 2.7 % (0.0-10.0); HEMATOCRIT 37.6 % (42.0-52.0); HEMOGLOBIN 12.3 g/dL (14.0-18.0); LYMPH# 0.77 X1000 (1.2-3.4); LYMPH% 17.4 % (20.5-51.1); MCH 30.9 PG (27-31); MCHC 32.7 g/dL (33-37); MCV 94.5 FL (81-99); MONO# 0.72 X1000 (0.11-0.59); MONO% 16.3 % (1.7-9.3); MPV 9.3 FL (7.4-10.4); PLT 188 X1000 (130-400); RBC 3.98 XMIL (4.7-6.1); RDW 13.3 % (11.5-14.5); WBC 4.42 X1000 (4.8-10.8)
[2019-08-04 06:43] LABS: AGAP 10; BUN 9 mg/dL (8-22); CALCIUM 7.8 mg/dL (8.8-10.2); CHLORIDE 105 mmol/L (98-107); COSMO 275; ESTIMATED GFR > 60; GLUCOSE 69 mg/dL (70-104); SODIUM 139 mmol/L (136-145); TCO2 24 mmol/L (25-35)
--- NOTE | 2019-08-04 08:50 | PROGRESS NOTE ---
DATE: 08/04/2019 SUBJECTIVE: This patient is resting comfortably in bed. Vital signs are stable. He is not using a nasal cannula and the oxygen saturation is above 90, but he is not doing any kind of physical activity. I will ask Physical Therapy to evaluate this patient today though. He had an episode of atrial fibrillation RVR yesterday that resolved with Cardizem IV x1. Since then, he has been sinus rhythm. He is not complaining of chest pain. He is not complaining of shortness of breath, but he does have severe dementia. He is not oriented. OBJECTIVE: Vital Signs: Temperature 98.8 degrees, pulse 86, respiratory rate 18 at this moment on the monitor, blood pressure 130/67, oxygen saturation on the monitor is 96 on room air. HEENT: Head normocephalic, no trauma. PERRLA. Neck: Supple. No JVD. No masses. Central trachea. Chest: Decreased breath sounds globally with prolonged expiratory phase and expiratory wheezing. Some right upper and mid lung rhonchi. Abdomen: Soft, nontender, nondistended. No hepatosplenomegaly. Extremities: No edema, no clubbing, no cyanosis. Neurological examination: The patient is awake, he is alert. He is following commands on and off, but he does have severe dementia. LABORATORY: WBC 4.4, hemoglobin 12.3, hematocrit 37.6, platelets 188. Sodium 139, potassium 4, chloride 105, bicarbonate 24. BUN 9, creatinine 1, glucose 69, calcium 7.8. ASSESSMENT AND PLAN: 1. Right suprahilar infiltrate likely due to pneumonia. I will get a CT scan to better know the chest anatomy and rule out a mass. White blood cell normalized. He is not having fever; only 1 episode of low-grade temperature a couple times yesterday at 99.8 and 99.9. 2. Atrial fibrillation with rapid ventricular response, just 1 episode. I do not think it is a good idea to put this patient on blood thinners at this moment. Probably that was triggered by the infection and his general condition. He converted back to sinus rhythm after a dose of Cardizem. I will keep an eye on this. 3. Dementia. It seems to be quite severe, probably a little bit worse due to his pneumonia, but he is not answering any of my questions. 4. History of tobacco use and chronic obstructive pulmonary disease. Now, he has exacerbation of this chronic obstructive pulmonary disease. He does have bilateral wheezing. He is on Xopenex and ipratropium nebulizer. I will continue with same management. Depending on his evolution, I will put him on steroids or not. cc: Roberto Pickard MD
[2019-08-04] MEDS: PROTONIX IV SCH (10:29)
[2019-08-04] MEDS: XOPENEX NEB INH SCH ×3 (11:08→22:17)
--- NOTE | 2019-08-04 16:48 | Diag Imaging Result Doc PS360 ---
EXAM: CT THORAX W/O CONTRAST INDICATION: R/O Right lung mass TECHNIQUE: This exam was performed using automated exposure control, adjustment of mA or kV according to patient size, and/or use of iterative reconstruction technique. COMPARISON: None. FINDINGS: There is excessive respiratory motion artifact. There is moderate to advanced pulmonary emphysema with an apical predominance. There are multiple calcified granulomata bilaterally. There are complex pleural fluid collections bilaterally with crenulated pleural borders suggesting that they're at least partially loculated. There is a moderate amount of pleural fluid bilaterally. There is associated dependent atelectasis bilaterally. In the right upper lobe posteriorly, there is an irregular ovoid lesion measuring 5.2 x 3.3 cm. Although it could represent dense focal pneumonia, it is suspicious for a mass. It is difficult to differentiate between the two with no IV contrast. There are fibrotic changes at the peripheries of the right middle lobe and the lingula. There is a 6 mm noncalcified nodule in the lingula on image 76 of series 4. There is bronchial mucosal thickening bilaterally suggesting bronchitis. Evaluation of the hilar lymph nodes is limited due to lack of IV contrast. However, they do appear to be somewhat prominent, nonspecific. There are shotty nonspecific mediastinal lymph nodes. There is no cardiomegaly. Limited views of the upper abdomen reveal thickening of the left adrenal gland that is nonspecific but statistically most likely represents an underlying adenoma. IMPRESSION: 1.Pulmonary emphysema. 2.Somewhat masslike opacity at the posterior aspect of the right upper lobe. Neoplasm cannot be excluded on this unenhanced study. 3.Complex moderate pleural effusions with crenulated parietal pleural borders. 4.Subcentimeter nodule in the lingula. 5.Bronchial mucosal thickening suggesting bronchitis. 6.Other incidental/nonacute findings detailed above. Electronically signed by Narayan Whaley 08/04/2019 4:45 PM
[2019-08-04] MEDS ORDERED: STERILE WATER INJ. INJ ONE (18:38)
[2019-08-04] MEDS ORDERED: GEODON IM ONE (18:38)
[2019-08-04] MEDS ORDERED: HALDOL IM ONE (20:35)
[2019-08-05] MEDS ORDERED: LOPRESSOR IV ONE ×2 (03:29→03:56)
[2019-08-05] MEDS ORDERED: LANOXIN IV ONE (03:30)
[2019-08-05] MEDS: ATROVENT NEB INH SCH ×4 (03:50→21:43)
[2019-08-05] MEDS ORDERED: LOPRESSOR ONE (04:02)
[2019-08-05] MEDS: MAXIPIME 1 GM in NS 50 ML IV SCH ×2 (06:11→17:02)
[2019-08-05] MEDS: ZYVOX 600 MG/D5W 600 MG/300 ML IVPB IV SCH ×2 (06:12→17:40)
[2019-08-05 07:12] LABS: AGAP 10; BUN 8 mg/dL (8-22); CALCIUM 8.6 mg/dL (8.8-10.2); CHLORIDE 105 mmol/L (98-107); COSMO 280; ESTIMATED GFR > 60; GLUCOSE 74 mg/dL (70-104); POTASSIUM 4.1 mmol/L (3.5-5.1); SODIUM 142 mmol/L (136-145); TCO2 27 mmol/L (25-35)
[2019-08-05] MEDS: NS 1,000 ML IV SCH ×2 (07:27→12:14)
--- NOTE | 2019-08-05 08:47 | PROGRESS NOTE ---
DATE: 08/05/2019 SUBJECTIVE: This patient has been agitated since yesterday. He received a dose of Geodon and he received a dose of Haldol, but it looks like it did not work too much. He also started having some atrial fibrillation and probably ventricular tachycardia during the night. I will start this patient back on his amiodarone, but I will start 200 p.o. twice a day, instead of once a day for a few days, and then I will decrease it again. On the other hand, I will restart his donepezil. I will put him on low dose of Ativan 3 times a day to see if that helps this patient to be more relaxed. Apparently, he has been also having some kind of aggressiveness at home. He has dementia which is quite severe. Upon discharge, this patient will go home with hospice once he is better. OBJECTIVE: Vital Signs: Temperature 98.4 degrees, pulse 88, respiratory rate 28, blood pressure 141/83, oxygen saturation 100% on 2 L of nasal cannula. HEENT: Head normocephalic, no trauma. PERRLA. Neck: Supple. No JVD. No masses. Central trachea. Chest: Decreased breath sounds globally with prolonged expiratory phase and expiratory wheezing. Some right upper and mid lung rhonchi on the right. Abdomen: Soft. No hepatosplenomegaly. Extremities: No edema, no clubbing, no cyanosis. Neurological examination: The patient is sleepy, but arousable. He is confused. LABORATORY: 1. Sodium 142, potassium 4.1, chloride 105, bicarbonate 27. 2. BUN 8, creatinine 1, glucose 74, calcium 8.6. ASSESSMENT AND PLAN: 1. Right suprahilar infiltrate likely due to pneumonia. I did a CT scan yesterday without contrast, and it looks like there is a possibility of a mass in that area. I do not think we are going to be aggressive with this. I do not think the family will go ahead and we will go ahead and get biopsy done. I will discuss this with the family, though. I will continue with antibiotics. He has severe dementia and he has been on hospice. Actually the daughter wants upon discharge to get hospice for this patient. 2. Atrial fibrillation with rapid ventricular response. He had apparently another episode during the night. He has been on amiodarone at home, which I will restart on 200 mg every 12 hours, and then I will decrease it to 100 daily. At this moment he is on normal sinus rhythm. 3. Dementia, seems to be quite severe and probably is a little bit worse with the pneumonia. He has been aggressive on and off. I will add Ativan a little bit by mouth to see if that helps. 4. History of tobacco use and chronic obstructive pulmonary disease. He is wheezing a little bit, so I will go ahead and continue with breathing treatment and put him on some steroids to see if that helps. CRITICAL CARE TIME: 35 minutes. cc: Roberto Pickard MD
--- NOTE | 2019-08-05 08:48 | EKG Report ---
Test Performed on : 08/05/2019 03:31:32 AM Test Reason : HIGH HEART RATE Blood Pressure : / mmHG Vent. Rate : 174 BPM Atrial Rate : 182 BPM P-R Int : 000 ms QRS Dur : 114 ms QT Int : 306 ms P-R-T Axes : 000 -02 102 degrees QTc Int : 520 ms Atrial fibrillation. with rapid ventricular response. Incomplete left bundle branch block Nonspecific ST and T wave abnormality Abnormal ECG When compared with ECG of 05-AUG-2019 03:30, (Unconfirmed) Atrial fibrillation. has replaced Sinus rhythm. Confirmed by Zac Hemphill MD ([id number]) on 08/05/2019 8:13:17 PM
--- NOTE | 2019-08-05 08:49 | EKG Report ---
Test Performed on : 08/05/2019 03:35:45 AM Test Reason : HIGH HEART RATE Blood Pressure : / mmHG Vent. Rate : 174 BPM Atrial Rate : 051 BPM P-R Int : 000 ms QRS Dur : 114 ms QT Int : 308 ms P-R-T Axes : 000 008 118 degrees QTc Int : 524 ms Atrial fibrillation. with rapid ventricular response. Incomplete left bundle branch block ST & T wave abnormality, consider lateral ischemia Abnormal ECG When compared with ECG of 05-AUG-2019 03:33, (Unconfirmed) Vent. rate has increased BY 60 BPM Confirmed by Zac Hemphill MD ([id number]) on 08/05/2019 8:14:37 PM
[2019-08-05] MEDS: ATIVAN PO SCH ×3 (09:34→22:07)
[2019-08-05] MEDS: CORDARONE PO SCH ×3 (09:34→22:06)
[2019-08-05] MEDS: XOPENEX NEB INH SCH ×3 (09:43→21:43)
[2019-08-05] MEDS: SODIUM CHLORIDE 0.9% INJ SCH (11:49)
[2019-08-05] MEDS: SOLU-MEDROL IV SCH ×2 (11:49→18:13)
[2019-08-05] MEDS: PROTONIX IV SCH (11:49)
[2019-08-05] MEDS: ATIVAN IV PRN (17:02)
[2019-08-05] MEDS: ARICEPT PO SCH ×2 (21:59→22:07)
[2019-08-05] MEDS ORDERED: CALMOSEPTINE OINTMENT TOP PRN (22:38)
[2019-08-06] MEDS: NS 1,000 ML IV SCH ×2 (01:45→14:05)
[2019-08-06] MEDS: SOLU-MEDROL IV SCH ×3 (03:02→18:00)
[2019-08-06] MEDS: ATROVENT NEB INH SCH ×4 (03:39→22:00)
[2019-08-06] MEDS: ZYVOX 600 MG/D5W 600 MG/300 ML IVPB IV SCH ×3 (04:57→16:59)
[2019-08-06] MEDS: MAXIPIME 1 GM in NS 50 ML IV SCH ×2 (04:57→16:59)
[2019-08-06] MEDS: ATIVAN PO SCH ×3 (09:15→20:08)
[2019-08-06] MEDS: CORDARONE PO SCH ×2 (09:15→20:19)
[2019-08-06] MEDS: XOPENEX NEB INH SCH ×3 (09:43→22:00)
--- NOTE | 2019-08-06 09:46 | PROGRESS NOTE ---
DATE: 08/06/2019 SUBJECTIVE: The patient seems to be resting better. No agitation during the night. No signs of atrial fibrillation during the night either. I put this patient yesterday on amiodarone twice a day and it seems to be working. I will keep the same treatment for now. His oxygen saturation is better, it is in the low 90s. OBJECTIVE: Vital Signs: Temperature 96 degrees, pulse 88, respiratory rate 23, blood pressure 125/64, oxygen saturation 98 on room air. HEENT: Head normocephalic, no trauma. PERRLA. Neck: Supple, no JVD. No masses. Central trachea. Chest: Decreased breath sounds globally with some expiratory wheezing, right midlung and upper lung rhonchi. Abdomen: Soft. No hepatosplenomegaly. Extremities: No edema, no clubbing, no cyanosis. Neurological: The patient is sleepy, but arousable. He is confused. He has a strong history of dementia. LABORATORY: No lab work done today. ASSESSMENT AND PLAN: 1. Right suprahilar infiltrates due to pneumonia. I did a CT scan 2 days ago without contrast. It looks like he has the possibility of a mass in that area. I do not think we are going to be aggressive with this because the daughter wants to take this patient home with hospice, but I will try to discuss this with the family to be on the same page. He has a strong history of dementia. 2. Atrial fibrillation with rapid ventricular rate. Apparently, he had another episode during the night yesterday, but not today. I put this patient on amiodarone twice a day and it seems to be working. 3. Dementia, seems to be quite severe. The plan is to send this patient home with hospice. Once this patient is more stable from his pneumonia, I will send him home. 4. History of tobacco use and chronic obstructive pulmonary disease. He is wheezing. He has an acute chronic obstructive pulmonary disease exacerbation. He has been placed on steroids. We will monitor. cc: Roberto Pickard MD
[2019-08-06] MEDS: PROTONIX IV SCH (10:14)
[2019-08-06] MEDS: ATIVAN IV PRN (20:06)
[2019-08-06] MEDS: ARICEPT PO SCH (20:18)
[2019-08-07] MEDS: ATIVAN IV PRN (00:07)
[2019-08-07] MEDS: SOLU-MEDROL IV SCH ×3 (03:27→20:03)
[2019-08-07] MEDS: NS 1,000 ML IV SCH (03:27)
[2019-08-07] MEDS: ATROVENT NEB INH SCH ×4 (03:30→23:42)
[2019-08-07] MEDS: MAXIPIME 1 GM in NS 50 ML IV SCH ×2 (04:34→17:21)
[2019-08-07] MEDS: ZYVOX 600 MG/D5W 600 MG/300 ML IVPB IV SCH ×3 (04:35→17:21)
[2019-08-07 06:27] LABS: HEMATOCRIT 39.3 % (42.0-52.0); HEMOGLOBIN 12.9 g/dL (14.0-18.0); IMM GRAN# 0.04 X1000 (0.0-0.04); IMM GRAN% 0.3 % (0.0-0.5); LYMPH# 0.51 X1000 (1.2-3.4); MCH 30.3 PG (27-31); MCHC 32.8 g/dL (33-37); MCV 92.3 FL (81-99); MONO# 0.59 X1000 (0.11-0.59); MONO% 4.6 % (1.7-9.3); MPV 9.3 FL (7.4-10.4); NEUT# 11.74 X1000 (1.4-6.5); NEUT% 91.1 % (42.2-75.2); PLT 265 X1000 (130-400); RBC 4.26 XMIL (4.7-6.1); RDW 13.3 % (11.5-14.5); WBC 12.88 X1000 (4.8-10.8)
[2019-08-07 06:41] LABS: MONO 6 % (1-9); SEGS 94 % (42-75)
[2019-08-07] MEDS ORDERED: LASIX IV ONE ×2 (07:06→07:47)
--- NOTE | 2019-08-07 07:08 | Diag Imaging Result Doc PS360 ---
EXAM: CHEST-PORTABLE 08/07/2019 HISTORY: dyspnea TECHNIQUE: AP portable at 0548 COMMENT: There is more extensive opacification of the right upper lobe compared to 08/01/2019. The left hemidiaphragm remains elevated and there is retrocardiac opacity as there was previously. IMPRESSION: Worsened atelectasis plus minus pneumonia in the right upper lobe. Stable left lower lobe atelectasis. Electronically signed by Aidan Gray 08/07/2019 7:05 AM
[2019-08-07 07:13] LABS: AGAP 12; BUN 16 mg/dL (8-22); CALCIUM 8.5 mg/dL (8.8-10.2); CHLORIDE 102 mmol/L (98-107); COSMO 278; ESTIMATED GFR > 60; GLUCOSE 92 mg/dL (70-104); POTASSIUM 4.6 mmol/L (3.5-5.1); SODIUM 139 mmol/L (136-145); TCO2 25 mmol/L (25-35)
[2019-08-07] MEDS ORDERED: SOLU-MEDROL IV ONE (07:48)
[2019-08-07] MEDS: CORDARONE PO SCH ×2 (08:45→20:03)
[2019-08-07] MEDS: ATIVAN PO SCH ×3 (08:45→20:03)
[2019-08-07] MEDS: XOPENEX NEB INH SCH ×3 (09:59→23:42)
--- NOTE | 2019-08-07 10:29 | PROGRESS NOTE ---
DATE: 08/07/2019 SUBJECTIVE: The patient seems to be resting better. He is still confused. No signs of atrial fibrillation. Continue with the same management. Oxygen saturation has been stable with oxygen, likely he will need oxygen to go home with, and actually he will go home with oxygen. X-ray showed worsened atelectasis plus minor pneumonia in the right upper lobe, which we have been already treating. OBJECTIVE: Vital Signs: Temperature 98 degrees, pulse 90, respiratory rate 22, blood pressure 157/88, oxygen saturation 99 on 3 L of nasal cannula. HEENT: Head normocephalic, no trauma. PERRLA. Neck: Supple. No JVD. No masses. Central trachea. Chest: Decreased breath sounds globally with expiratory wheezing, right mid lung and right upper lung rhonchi. Abdomen: Soft. No hepatosplenomegaly. Extremities: No edema, no clubbing, no cyanosis. Neurological Examination: The patient is awake. He is confused. He has had a strong history of dementia. LABORATORY: WBC 12.8, hemoglobin 12.9, hematocrit 39.3, platelet 265,000. Sodium 139, potassium 4.6, chloride 102, bicarbonate 25, BUN 16, creatinine 1, glucose 93, calcium 8.5. ASSESSMENT AND PLAN: 1. Right suprahilar infiltrate due to pneumonia, we did a computed tomography scan without contrast that showed the possibility of a mass in that area. I already discussed the case with the daughter. We are not going to do any kind of aggressive measures. We are going to just monitor. This patient will be discharged home with hospice at some point, hopefully tomorrow or the day after tomorrow. 2. Atrial fibrillation with rapid ventricular response, resolved, continue with the same management. 3. Dementia, severe. This patient will be going home with hospice. 4. History of tobacco use and severe chronic obstructive pulmonary disease. He is having chronic obstructive pulmonary disease exacerbation. He is wheezing. Continue with steroids and breathing treatment. cc: Roberto Pickard MD
[2019-08-07] MEDS: PROTONIX IV SCH (11:58)
[2019-08-07] MEDS: ARICEPT PO SCH (20:04)
[2019-08-08] MEDS: SOLU-MEDROL IV SCH ×2 (01:09→08:35)
[2019-08-08] MEDS: ATROVENT NEB INH SCH ×3 (03:55→10:52)
[2019-08-08] MEDS: ZYVOX 600 MG/D5W 600 MG/300 ML IVPB IV SCH (05:15)
[2019-08-08] MEDS: MAXIPIME 1 GM in NS 50 ML IV SCH (05:15)
[2019-08-08 06:57] LABS: AGAP 11; BUN 22 mg/dL (8-22); CALCIUM 8.7 mg/dL (8.8-10.2); CHLORIDE 100 mmol/L (98-107); COSMO 285; CREATININE 1.1 mg/dL (0.7-1.2); ESTIMATED GFR > 60; GLUCOSE 132 mg/dL (70-104); SODIUM 140 mmol/L (136-145); TCO2 29 mmol/L (25-35)
[2019-08-08] MEDS: XOPENEX NEB INH SCH ×2 (07:02→10:53)
[2019-08-08 07:30] VITALS: BP 131/62
[2019-08-08] MEDS: CORDARONE PO SCH (08:35)
[2019-08-08] MEDS: ATIVAN PO SCH (08:36)
--- NOTE | 2019-08-08 16:30 | DISCHARGE SUMMARY ---
ADMISSION DATE: 08/01/2019 DISCHARGE DATE: 08/08/2019 DISCHARGE DIAGNOSES: 1. Right suprahilar infiltrate due to pneumonia. 2. A couple of episodes of atrial fibrillation with rapid ventricular response, resolved, back to sinus. 3. Severe dementia. 4. Tobacco abuse with chronic obstructive pulmonary disease exacerbation. 5. Possible mass at the level of the right upper lobe. PROCEDURES PERFORMED: 1. Chest x-ray dated 08/01/2003. Impression; right suprahilar infiltrate, mass or scar. 2. Abdominal CT scan dated 06/04/2019. Impression; mild enlargement of the left adrenal gland, mild retroperitoneal adenopathy, colonic diverticulosis, no evidence of diverticulitis, moderate amount of retained fecal debris in the colon, no bowel obstruction, no abscess, no free air. 3. Head CT scan dated 08/01/2019. Impression; no visible acute intracranial abnormality, no hemorrhage or mass effect. 4. Chest CT scan dated 08/04/2019. Impression; pulmonary emphysema, masslike opacity at the posterior aspect of the right upper lobe, neoplasm cannot be excluded on this unenhanced study, complex moderate pleural effusion with cannulated periatrial pleural borders, subcentimeter nodule in the lingula, bronchial mucosal thickening suggesting bronchitis. 5. Chest x-ray dated 08/07/2019. Impression; worsened atelectasis plus/minus pneumonia in the right upper lobe. Stable left lower lobe atelectasis. HOSPITAL COURSE: An 83-year-old male with a past medical history of severe dementia and chronic obstructive pulmonary disease on home oxygen. He presented to the emergency department with his daughter. She stated that the last time she saw her dad acting normal was the night before admission. He was admitted on 08/01/2019, apparently after sleeping he was found to be lethargic and he was not responding. So, she called 911. Apparently, for about the past 7 to 8 he had decreased oral intake, and he started out with decreased food and now progressively to liquids. She denies any known fever, chills. The chest x-ray showed pneumonia at the level of the right suprahilar area. He was placed on antibiotics. On the physical exam, he was wheezing bilaterally and short of breath, so we continued with breathing treatment, oxygen supplementation, antibiotics and steroids. He also received Lasix during this hospitalization because of some pulmonary edema. He does have severe dementia. He was awake, but he was not able to answer any of my questions. CT scan of the chest showed the possibility of a lung mass. I discussed this with the daughter, and she states that for now they are not going to do anything aggressive, since he will be discharged home with hospice. Today this patient seems to be better. He is still wheezing, but is much better compared with the previous days. He has been having bowel movements. He has been tolerating at least 75% of his food. He will be discharged home with hospice and oxygen. Will continue with antibiotics by mouth as well. PHYSICAL EXAMINATION: Vital signs: Temperature 98.4 degrees, pulse 82, respiratory rate 18, blood pressure 131/62, oxygen saturation 93% on 3 L of nasal cannula. HEENT: Head normocephalic. No trauma. PERRLA. Neck: Supple. No JVD. No masses. Central trachea. Chest: Decreased breath sounds globally with prolonged expiratory phase and faint end-expiratory wheezes with some crepitus at the bases. Abdomen: Soft, nontender, nondistended. No hepatosplenomegaly. Extremities: No edema, no clubbing, no cyanosis. Neurological: The patient is awake and alert but he is not oriented. He is following commands on and off. He has a strong history of dementia. LABORATORY: Sodium 140, potassium 4, chloride 100, bicarbonate 29, BUN 22, creatinine 1.1, glucose 132, calcium 8.7. DISCHARGE MEDICATIONS: 1. DuoNeb inhaler every 4 to 6 hours as needed. 2. Amiodarone 200 mg p.o. daily. 3. Cefdinir 300 mg p.o. b.i.d. 4. Donepezil 10 mg p.o. at bedtime. 5. Doxazosin 1 mg p.o. at bedtime. 6. Ativan 0.5 mg p.o. t.i.d. 7. Medrol Dosepak as directed. TIME SPENT ON DISCHARGE: Time discharging this patient 32 minutes. cc: Roberto Pickard MD
== END 2019-08-08 11:30 | disposition hospice, home (50) | DRG 871 ==
LOC: P.ED 17:14 → P.EDIPHOLD 22:55 → SUATTDRO 22:55 → ICU 08-03 10:15
PROVIDERS: ATTEND Internal Medicine